=== PATIENT | male | born 1960 | race Caucasian/White ===

== ENCOUNTER 2018-05-23 11:25 | Day surgery (SDC) | payer OTHER ==
[~2018-05-23] VITALS: Ht 152.4 cm; Wt 79.3 kg
[2018-05-23 12:44] VITALS: Ht 152.4 cm; Wt 79.3 kg
[2018-05-23 13:38] VITALS: BP 125/75; PULSE 43; RESP 12
[2018-05-23] MEDS ORDERED: FENTAnyl 50 MCG/ML VIAL ONE (14:15)
[2018-05-23] MEDS ORDERED: MIDAZOLAM 1 MG/ML 2 ML INJ ONE (14:15)
[2018-05-23 14:32] VITALS: BP 104/64; PULSE 45; RESP 18
== END 2018-05-23 14:25 | disposition home or self-care (01) ==
LOC: GIL 11:25
PROVIDERS: ATTEND Internal Medicine Gastroenterology
DX: Z12.11 Encounter for screening for malignant neoplasm of colon (principal); K64.8 Other hemorrhoids
CPT/HCPCS: 45378; J2250; J3010; Z7610